=== PATIENT | male | born 2005 | race African-American/Black ===

== ENCOUNTER 2024-09-08 19:44 | Outpatient (REF) | payer BC, OTHER, SELFPAY ==
--- NOTE | ~2024-09-08 | MR_ITS ---
CLINICAL HISTORY: PAIN MR left elbow without gadolinium Comparison: None Findings: No fractures. No pathologic bone lesions. Small joint effusion. Increased T2 signal in the radial collateral ligament concerning for partial tear. Ulnar collateral ligament is intact. Biceps, brachialis, triceps, common flexor and common extensor tendons intact. Normal ulnar nerve. IMPRESSION: Small joint effusion. Increased T2 signal in the radial collateral ligament concerning for partial tear. This document has been electronically signed by: Elisa Tim MD on 09/08/2024 21:44:49
== END 2024-09-08 19:45 | disposition home or self-care (01) ==
LOC: HO.MRI 19:44
PROVIDERS: Visit Provider Student in an Organized Health Care Education/Training Program
DX: M25.522 Pain in left elbow (principal); M25.322 Other instability, left elbow; M25.422 Effusion, left elbow
CPT/HCPCS: 73221

== ENCOUNTER → 2024-09-08 19:58 | Outpatient (BNV) | payer BC, OTHER, SELFPAY | PROVIDERS: Visit Provider Radiology Diagnostic Radiology | DX: M25.422 Effusion, left elbow (principal) | CPT/HCPCS: 73221 ==